=== PATIENT | male | born 1985 | race African-American/Black ===

== ENCOUNTER 2017-02-25 15:18 | Emergency (ER) | payer MEDICAID ==
[~2017-02-25] VITALS: Ht 175.3 cm; Wt 72.6 kg
[2017-02-25 15:39] VITALS: BP 123/91
== END 2017-02-25 16:02 | disposition home or self-care (01) ==
LOC: ER 15:19
DX: J45.909 Unspecified asthma, uncomplicated (principal)

== ENCOUNTER 2017-04-17 00:52 | Emergency (ER) | payer MEDICAID ==
[~2017-04-17] VITALS: Ht 175.3 cm; Wt 77.1 kg
[2017-04-17 03:09] VITALS: BP 130/89
== END 2017-04-17 03:33 | disposition home or self-care (01) ==
LOC: ER 00:52
DX: J20.9 Acute bronchitis, unspecified (principal); J45.909 Unspecified asthma, uncomplicated

== ENCOUNTER 2017-05-06 17:26 | Emergency (ER) | payer MEDICAID ==
[~2017-05-06] VITALS: Ht 175.3 cm; Wt 77.1 kg
[2017-05-06 17:46] VITALS: BP 121/72
== END 2017-05-06 21:56 | disposition left against medical advice (07) ==
LOC: ER 17:26
DX: J02.9 Acute pharyngitis, unspecified (principal); R05 Cough; Z53.21 Procedure and treatment not carried out due to patient leaving prior to being seen by health care provider

== ENCOUNTER 2022-06-11 13:50 | Emergency (ER) | payer MEDICAID, OTHER ==
[~2022-06-11] VITALS: Ht 175.3 cm; Wt 83.1 kg
[~2022-06-11 13:50] MED LIST: CYCL-837 PO; IBUP800T26 PO
[2022-06-11 15:01] VITALS: BP 126/83
[2022-06-11] MEDS ORDERED: DexAMETHasone SOD PHOS 10MG/1ML VIAL INJ IM ONE (16:00)
[2022-06-11] MEDS ORDERED: KETOROLAC TROMETH 60MG/2ML VIAL IM ONE (16:00)
[2022-06-11] MEDS ORDERED: BENZ100C19 PO (17:38)
[2022-06-11] MEDS ORDERED: LORA-483 GT (17:38)
[2022-06-11] MEDS ORDERED: IBUP800T26 PO (17:38)
== END 2022-06-11 17:47 | disposition home or self-care (01) ==
LOC: ER 13:50
DX: J02.8 Acute pharyngitis due to other specified organisms (principal); J45.909 Unspecified asthma, uncomplicated; F12.10 Cannabis abuse, uncomplicated; Z20.822 Contact with and (suspected) exposure to COVID-19
CPT/HCPCS: 36415; 87070; 87426; 87880; 96372; 99284; J1100

== ENCOUNTER 2023-02-05 07:35 | Day surgery (SDC) | payer MEDICAID ==
[2023-02-03 12:26] LABS: Basophils # (auto) 0 10 ^3/uL (0-0.2); Basophils % (auto) 0.7 % (0.0-2.0); Eosinophils # (auto) 0.1 10 ^3/uL (0-0.8); Eosinophils % (auto) 1.3 % (0.0-7.0); Hematocrit 48.5 % (41.0-53.0); Hemoglobin 16.7 g/dL (13.5-17.5); Lymphocytes # (auto) 2.8 10 ^3/uL (0.4-5.4); Lymphocytes % (auto) 45.7 % (10.0-50.0); Mean Corpuscular Hemoglobin 31.5 pg (28.0-32.0); Mean Corpuscular Hgb Conc. 34.4 g/dL (32.0-36.0); Mean Corpuscular Volume 91.7 fL (80.0-100.0); Monocytes # (auto) 0.4 10 ^3/uL (0-1.3); Monocytes % (auto) 7.3 % (0.0-12.0); Neutrophils # (auto) 2.7 10 ^3/uL (1.6-8.6); Nucleated Red Blood Cells % 0.1 %; Red Blood Cells 5.29 10^6/uL (4.5-5.90)
[2023-02-03 12:40] LABS: Urine Bacteria NONE SEEN /hpf (None Seen); Urine Blood 1+ /uL (Negative); Urine Clarity Clear (Clear); Urine Color Colorless (Yellow); Urine Protein, UAD Negative (Negative); Urine Specific Gravity 1.011 (1.001-1.035); Urine Urobilinogen Normal (Negative); Urine WBC <1 /hpf (0 - 3)
[2023-02-03 12:46] LABS: INR 1.03 (0.9-1.15); Partial Thromboplastin Time 30.1 SEC (24.5-34.5); Prothrombin Time 10.8 sec (9.3-11.8)
[2023-02-03 13:29] LABS: Alanine Aminotransferase 37 U/L (7-40); Alkaline Phosphatase 77 U/L (46-116); Anion Gap 10 (5-15); Blood Urea Nitrogen 8 mg/dL (9-23); Calcium 9.9 mg/dL (8.5-10.1); Carbon Dioxide 25 mmol/L (20-30); Chloride 105 mmol/L (98-107); Glucose 98 mg/dL (74-106); Potassium 3.8 mmol/L (3.5-5.1); Sodium 140 mmol/L (136-145)
[2023-02-03 13:30] LABS: Albumin 4.9 g/dL (3.2-4.8); Aspartate Aminotransferase 24 U/L (13-40); Bilirubin, Total 0.6 mg/dL (0.2-1.0)
[~2023-02-05] VITALS: Ht 170.2 cm; Wt 81.6 kg
[2023-02-05] MEDS ORDERED: PROPOFOL 10 MG/ML 20 ML IV ONE (07:36)
[2023-02-05] MEDS ORDERED: ceFAZolin 1GM/50ML 100 ML IV ONE (10:33)
[2023-02-05] MEDS ORDERED: KETOROLAC TROMETH 60MG/2ML VIAL ONE (10:39)
[2023-02-05] MEDS ORDERED: GLYCOPYRROLATE 0.2 MG/ML 1ML VIAL ONE (10:39)
[2023-02-05] MEDS ORDERED: ONDANSETRON HCL 4 MG/2 ML VIAL ONE (10:39)
[2023-02-05] MEDS ORDERED: LIDOCAINE 2% (LOCAL ANESTH.) PF 5ml SDV ONE (10:39)
[2023-02-05] MEDS ORDERED: fentaNYL CITRATE 100 MCG/2 ML VL ONE (10:40)
[2023-02-05] MEDS ORDERED: BACITRACIN TOP OINT 1 UD PKG TOP ONE (11:04)
[2023-02-05] MEDS ORDERED: LIDOCAINE 1%-Mpf/Epinephrine 1:200,000 30ml VIAL ONE (11:04)
[2023-02-05 11:57] VITALS: RESP 23; TEMP 98.1; O2SAT 99
[2023-02-05] MEDS ORDERED: FLUMAZENIL 0.1 MG/ML INJ 10ML MDV IV PRN (12:15)
[2023-02-05] MEDS ORDERED: ePHEDrine SULFATE 50 MG/ML AMP IV PRN (12:15)
[2023-02-05] MEDS ORDERED: HYDROmorphone HCL 2 MG/ML VL/or syr IV PRN (12:15)
[2023-02-05] MEDS ORDERED: hydrALAZINE HCL 20 MG/ML VL IV PRN (12:15)
[2023-02-05] MEDS ORDERED: oxyCODONE HCL 5MG TAB PO PRN (12:15)
[2023-02-05] MEDS ORDERED: fentaNYL CITRATE 100 MCG/2 ML VL IV PRN (12:15)
[2023-02-05] MEDS ORDERED: ONDANSETRON HCL 4 MG/2 ML VIAL IV PRN (12:15)
[2023-02-05] MEDS ORDERED: LABETALOL HCL 5 MG/ML 4ML SYRINGE IV PRN (12:15)
[2023-02-05] MEDS ORDERED: NALOXONE HCL 0.4 MG/ML VIAL IV PRN (12:15)
[2023-02-05 12:46] VITALS: BP 133/88; PULSE 81; RESP 10; O2SAT 98
== END 2023-02-05 13:03 | disposition home or self-care (01) ==
LOC: SUR 07:35
PROVIDERS: ATTEND Urology
DX: N47.1 Phimosis (principal)
CPT/HCPCS: 36415; 54161; 80053; 81001; 85025; 85610; 85730; 87086; 88305; J0690; J1885; J2001; J2405; J2704; J3010